=== PATIENT | female | born 1995 | race Asian ===

== ENCOUNTER 2017-01-27 10:26 | Emergency (ER) | payer OTHER ==
[2017-01-27 10:35] VITALS: BP 121/80; PULSE 85; RESP 18; TEMP 97.9; O2SAT 96
== END 2017-01-27 11:00 | disposition left against medical advice (07) ==
DX: Z53.21 Procedure and treatment not carried out due to patient leaving prior to being seen by health care provider (principal)

== ENCOUNTER 2017-01-27 11:22 | Emergency (ER) | payer OTHER ==
[2017-01-27 11:37] VITALS: PULSE 77; RESP 16; TEMP 98.4
[2017-01-27 12:01] LABS: COLOR YELLOW; LEUKOCYTE ESTERASE,URINE NEGATIVE (NEGATIVE); NITRITE,URINE NEGATIVE (NEGATIVE); PH,URINE 5.5 (5.0-7.5)
[2017-01-27] MEDS ORDERED: NS 1,000 ML IV ONE (12:19)
[2017-01-27] MEDS ORDERED: KETOROLAC 15 MG/1 ML SDV IVP ONE ×2 (12:21→14:07)
--- NOTE | 2017-01-27 12:32 | EDPHY ---
H & P Stated Complaint: Pt. states low suprpubic intermittent pain since 0700 this am Time Seen by Provider: 01/27/17 11:32 HPI/ROS: This patient reports onset of suprapubic and left lower quadrant pelvic pain at around 7:00 a.m. peak intensity 8/10, currently 3/10 with mild bilateral flank pain associated with her symptoms. The symptoms worsen with walking and movement in terms of pain and she notes no other exacerbating factors. She has not had this pain before. She did not take any medication for the pain prior to arrival. She notes associated nausea this morning but no other associated symptoms. ROS: No fevers or chills HEENT: No URI symptoms or other complaints Pulmonary: No cough shortness of breath Cardiovascular: No lightheadedness. No chest pain GI: No upper belly pain. No right lower quadrant pain. No vomiting. Normal bowel movement yesterday. : No dysuria, frequency, urgency or hematuria. Her menses have been irregular recently. Last menstrual period 3 weeks ago but prior to that was 6 weeks. No vaginal discharge. Integumentary: No rash Endocrine: No complaints Complete review of symptoms is otherwise negative. Source: Patient, Family (Patient's mother drove her in by private vehicle for further evaluation ) Exam Limitations: No limitations - Personal History LMP (Females 10-55): 1-7 Days Ago - Medical/Surgical History PMH: Hx Asthma: Yes Other PMH: Med hx-asthma. 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 Eyes: Pupils equal and round no pallor or injection. ENT, Mouth: Mucous membranes moist. Respiratory: There are no retractions, lungs are clear to auscultation. Cardiovascular: Regular rate and rhythm. No murmur gallop or rub Gastrointestinal: Normoactive, soft, positive moderate suprapubic tenderness and moderate to exquisite left lower quadrant tenderness borderline rebound. No upper belly tenderness. No organomegaly. Back: No CVA tenderness Neurological: GCS 15 Skin: Warm and dry, no rashes. Musculoskeletal: Neck is supple nontender. Extremities are symmetrical, full range of motion. Psychiatric: Mood and affect normal DIFFERENTIAL DIAGNOSIS: After history and physical exam differential diagnosis was considered for cystitis, pyelonephritis, ovarian cyst, ruptured ovarian cyst , constipation, ectopic Constitutional: Initial Vital Signs Temperature (C) 36.9 C 01/27/17 11:31 Heart Rate 77 01/27/17 11:31 Respiratory Rate 16 01/27/17 11:31 Blood Pressure 115/74 01/27/17 11:31 O2 Sat (%) 95 01/27/17 11:31 O2 Delivery Mode Room Air Allergies/Adverse Reactions: cephalexin [Cephalexin] Allergy (Mild, Verified 01/27/17 10:32) GI oxycodone Allergy (Mild, Verified 01/27/17 10:32) GI amoxicillin Allergy (Unknown, Verified 01/27/17 10:32) cefuroxime Allergy (Unknown, Verified 01/27/17 10:32) sulfamethoxazole Allergy (Unknown, Verified 01/27/17 10:32) Home Medications: Medication Instructions Recorded Albuterol Hfa Anes Only 01/27/17 Asthmanex 01/27/17 Medical Decision Making - Diagnostics Imaging Results: Imaging Impressions Pelvic/Renal Ultrasound 01/27/17 12:20 Impression: Normal appearance of the uterus and ovaries with a small amount of free fluid in the right adnexal region, which is a nonspecific finding but could represent rupture of a small ovarian follicle or cyst. Findings were discussed with GURINDER ESQUIVEL MD at 14:14, on 01/27/2017. Imaging: Discussed imaging studies w/ call center associate Radiologist ED Course/Re-evaluation: Studies: Urinalysis is normal. Urine test is negative After review of urinalysis and urine proceed with an IV, saline bolus , Toradol IV for pain control and ultrasound evaluation Patient complained of persistent despite initial Toradol dose dense given a 2nd dose of Toradol and Tylenol p.o.. I spoke with Dr. Lonnie Huston regarding the ultrasound results reveals small amount of free fluid close to the right of very low consistent with ruptured ovarian cyst no other abnormal findings on ultrasound. I also reviewed the images of this ultrasound health. I counseled patient mother regarding today's workup and findings. I also discussed the follow-up plan - will see OBGYN, Dr. Nanci SANTIAGOH. Discussion: Ruptured ovarian cyst without evidence of significant hemorrhage- no orthostasis, anemia or other concerning findings. Rule out today, no evidence of ovarian torsion, no UTI, no other concerning findings. Please arrange for a copy of this chart to be sent to Dr. Nanci De Los Santos at [facility]-office phone [phone] - Data Points Laboratory Results: Laboratory Results 01/27/17 11:23 01/27/17 11:23 01/27/17 01/27/17 01/27/17 12:00 12:00 11:23 WBC RBC Hgb Hct MCV MCH MCHC RDW Plt Count MPV Neut % (Auto) Lymph % (Auto) Avery % (Auto) Eos % (Auto) Baso % (Auto) Nucleat RBC Rel Count Absolute Neuts (auto) Absolute Lymphs (auto) Absolute Monos (auto) Absolute Eos (auto) Absolute Basos (auto) Absolute Nucleated RBC Immature Gran % Immature Gran # Sodium 141 mEq/L mEq/L (134-144) Potassium 4.4 mEq/L mEq/L (3.5-5.2) Chloride 104 mEq/L mEq/L (97-110) Carbon Dioxide 22 mEq/l mEq/l (22-31) Anion Gap 15 mEq/L mEq/L (8-16) BUN 14 mg/dL mg/dL (7-23) Creatinine 0.6 mg/dL mg/dL (0.6-1.0) Estimated GFR > 60 Glucose 99 mg/dL mg/dL (70-100) Calcium 9.4 mg/dL mg/dL (8.5-10.4) Urine Color YELLOW Urine Appearance HAZY Urine pH 5.5 (5.0-7.5) Ur Specific Clementon >= 1.030 (1.002-1.030) Urine Protein NEGATIVE (NEGATIVE) Urine Ketones NEGATIVE (NEGATIVE) Urine Blood NEGATIVE (NEGATIVE) Urine Nitrate NEGATIVE (NEGATIVE) Urine Bilirubin NEGATIVE (NEGATIVE) Urine Urobilinogen 0.2 EU EU (0.2-1.0) Ur Leukocyte Esterase NEGATIVE (NEGATIVE) Urine Glucose NEGATIVE (NEGATIVE) Urine Test NEGATIVE 01/27/17 11:23 WBC 6.71 10^3/uL 10^3/uL (3.80-9.50) RBC 4.58 10^6/uL 10^6/uL (4.18-5.33) Hgb 14.3 g/dL g/dL (12.6-16.3) Hct 40.6 % % (38.0-47.0) MCV 88.6 fL fL (81.5-99.8) MCH 31.2 pg pg (27.9-34.1) MCHC 35.2 g/dL g/dL (32.4-36.7) RDW 12.0 % % (11.5-15.2) Plt Count 249 10^3/uL 10^3/uL (150-400) MPV 8.9 fL fL (8.7-11.7) Neut % (Auto) 79.4 % H % (39.3-74.2) Lymph % (Auto) 14.9 % L % (15.0-45.0) Avery % (Auto) 4.3 % L % (4.5-13.0) Eos % (Auto) 0.4 % L % (0.6-7.6) Baso % (Auto) 0.6 % % (0.3-1.7) Nucleat RBC Rel Count 0.0 % % (0.0-0.2) Absolute Neuts (auto) 5.32 10^3/uL 10^3/uL (1.70-6.50) Absolute Lymphs (auto) 1.00 10^3/uL 10^3/uL (1.00-3.00) Absolute Monos (auto) 0.29 10^3/uL L 10^3/uL (0.30-0.80) Absolute Eos (auto) 0.03 10^3/uL 10^3/uL (0.03-0.40) Absolute Basos (auto) 0.04 10^3/uL 10^3/uL (0.02-0.10) Absolute Nucleated RBC 0.00 10^3/uL 10^3/uL (0-0.01) Immature Gran % 0.4 % % (0.0-1.1) Immature Gran # 0.03 10^3/uL 10^3/uL (0.00-0.10) Sodium Potassium Chloride Carbon Dioxide Anion Gap BUN Creatinine Estimated GFR Glucose Calcium Urine Color Urine Appearance Urine pH Ur Specific Clementon Urine Protein Urine Ketones Urine Blood Urine Nitrate Urine Bilirubin Urine Urobilinogen Ur Leukocyte Esterase Urine Glucose Urine Test Medications Given: Discontinued Medications Sodium Chloride (Ns) 1,000 mls @ 0 mls/hr IV EDNOW ONE; Wide Open PRN Reason: Protocol Stop: 01/27/17 12:20 Last Admin: 01/27/17 12:36 Dose: 1,000 mls Ketorolac Tromethamine (Toradol) 15 mg IVP EDNOW ONE Stop: 01/27/17 12:22 Last Admin: 01/27/17 12:35 Dose: 15 mg Ketorolac Tromethamine (Toradol) 15 mg IVP EDNOW ONE Stop: 01/27/17 14:08 Last Admin: 01/27/17 14:13 Dose: 15 mg Departure - Departure Disposition: Home, Routine, Self-Care Clinical Impression: Hemorrhagic ovarian cyst Condition: Good Instructions: Ruptured Ovarian Cyst (ED) Additional Instructions: Diagnosis: Ruptured ovarian cyst Plan: [id number] mg per 6 hours as needed for pain Tylenol in addition if needed Tramadol in addition if needed for pain that prevents sleep. No driving, school or work on this medication. Also no alcohol on this medication. Call your OBGYN physician-Dr. De Los Santos to arrange follow-up appointment for later this week or early next week. Limit activity until symptoms resolve-avoid vigorous activities. Return emergency department if you develop unbearable pain despite the treatment plan, lightheadedness or additional symptoms despite plan Stand Alone Forms: School Excuse
[2017-01-27 12:43] LABS: % IMMATURE GRANULYOCYTES 0.4 % (0.0-1.1); ABSOLUTE IMMATURE GRANULOCYTES 0.03 10^3/uL (0.00-0.10); ADD DIFF? NO; ADD MORPH? NO; ADD SCAN? NO; ATYPICAL LYMPHOCYTE FLAG 10 (0-99); FRAGMENT RBC FLAG 0 (0-99); HEMATOCRIT 40.6 % (38.0-47.0); HEMOGLOBIN 14.3 g/dL (12.6-16.3); LEFT SHIFT FLG 0 (0-99); LIPEMIA HEMOLYSIS FLAG 90 (0-99); MEAN CELL HEMOGLOBIN 31.2 pg (27.9-34.1); MEAN CELL HEMOGLOBIN CONCENTR. 35.2 g/dL (32.4-36.7); MEAN CELL VOLUME 88.6 fL (81.5-99.8); MEAN PLATELET VOLUME 8.9 fL (8.7-11.7); PLATELET CLUMPS FLAG 0 (0-99); PLATELET COUNT 249 10^3/uL (150-400); RED BLOOD CELL COUNT 4.58 10^6/uL (4.18-5.33)
[2017-01-27 12:59] LABS: ANION GAP 15 mEq/L (8-16); CALCIUM 9.4 mg/dL (8.5-10.4); CARBON DIOXIDE 22 mEq/l (22-31); CHLORIDE 104 mEq/L (97-110); CREATININE 0.6 mg/dL (0.6-1.0); GLOMERULAR FILTRATION RATE > 60; GLUCOSE 99 mg/dL (70-100); POTASSIUM 4.4 mEq/L (3.5-5.2); SODIUM 141 mEq/L (134-144)
[2017-01-27] MEDS ORDERED: ACETAMINOPHEN 500 MG TAB PO ONE (14:26)
[2017-01-27 15:04] VITALS: BP 118/65; O2SAT 96
== END 2017-01-27 14:54 | disposition home or self-care (01) ==
LOC: CED 11:22
DX: N83.201 Unspecified ovarian cyst, right side (principal); J45.909 Unspecified asthma, uncomplicated; E86.9 Volume depletion, unspecified
CPT/HCPCS: 76856-PO; 80048-PO; 81003-PO; 81025-PO; 85025-PO; 96374; J1885